=== PATIENT | female | born 1970 | race Caucasian/White ===

== ENCOUNTER 2022-11-22 14:40 | Outpatient (REF) | payer MEDICAID, SELFPAY ==
--- NOTE | 2022-11-22 14:05 | PAPFT_PTH ---
PATIENT: Saba Solorzano LOC: [facility]#:[id number] AGE/SX: 52/F ROOM: RE11/22/[address]: Melody Flor : 1970 BED: DIS: 11/22/2022 SPEC #: [id number] RECD: 11/25/22 13:18 STATUS: VIELKA REQ #: [id number] ISRAEL: 11/22/22 14:[address]: Melody Flor DEPT: [facility] Cytology RECD BY: Radha Rasmussen ENTERED: 11/25/22 13:18 SP TYPE: PAPFT OTHR DR: Rahul Nguyen Tissues: 1 - CX/ENDOCX FOR PAP SMEARS Procedures: PAP THIN PREP/[facility] Screening HPV DNA PROBE Comments: [id number]
== END 2022-11-22 14:41 | disposition home or self-care (01) ==
LOC: NCHCN 14:40
PROVIDERS: PCP Physician Assistant; Visit Provider Physician Assistant
DX: Z12.4 Encounter for screening for malignant neoplasm of cervix (principal); Z11.51 Encounter for screening for human papillomavirus (HPV)
CPT/HCPCS: 88142; 87624